=== PATIENT | female | born 1965 | race Caucasian/White ===

== ENCOUNTER 2024-08-30 00:14 | Emergency (ER) | payer SELFPAY ==
[~2024-08-30] VITALS: Ht 152.4 cm; Wt 60.0 kg
[2024-08-30 00:27] VITALS: O2SAT 98
[2024-08-30 00:57] LABS: BASOPHILS % 0.5 % (0.0-2.0); EOSINOPHILS % 1.1 % (0.0-5.0); HEMATOCRIT. 39.8 % (36.0-48.0); HEMOGLOBIN. 13.3 g/dL (12.0-16.0); LYMPHOCYTES % 16.6 % (20.0-50.0); MEAN CORPUSCULAR HEMOGLOBIN 28.7 pg (28.0-32.0); MEAN CORPUSCULAR HGB CONC 33.4 g/dL (31.0-37.0); MEAN CORPUSCULAR VOLUME 85.9 fL (81.0-99.0); MEAN PLATELET VOLUME 9.2 fl (7.4-10.4); MONOCYTES % 4.8 % (2.0-8.0); PLATELET 181 x1000/uL (130-400); RED BLOOD CELL COUNT 4.63 mill/uL (4.2-5.4); WHITE BLOOD COUNT 11.3 x1000/uL (4.5-11.0)
[2024-08-30 00:59] LABS: CHLORIDE 102 mEq/L (98-107); POTASSIUM 3.5 mEq/L (3.5-5.1); SODIUM 140 mEq/L (136-145)
[2024-08-30 01:00] LABS: CARBON DIOXIDE 28 mEq/L (21-32)
[2024-08-30 01:01] LABS: CALCIUM 9.2 mg/dL (8.7-10.4)
[2024-08-30] MEDS: ONDANSETRON HCL 4MG/2ML INJ IV ONE (01:01)
[2024-08-30] MEDS: METOCLOPRAMIDE HCL 10MG/2ML VIAL IV ONE (01:01)
[2024-08-30] MEDS: SODIUM CHLORIDE 0.9% 1,000 ML IV ONE (01:01)
[2024-08-30] MEDS: ACETAMINOPHEN 500MG TABLET PO ONE (01:01)
[2024-08-30 01:05] LABS: CREATININE 0.7 mg/dL (0.6-1.0)
[2024-08-30 01:06] LABS: ETHANOL BLOOD < 10 mg/dL (<10); GLUCOSE 164 mg/dL (70-105); UREA NITROGEN BLOOD 12 mg/dL (9-23)
[2024-08-30 01:21] LABS: TROPONIN I HIGH SENSITIVITY < 4 ng/L (3.0-34)
[2024-08-30 01:26] LABS: HCG SCREEN NEGATIVE
[2024-08-30] MEDS: KETOROLAC 30MG/ML VIAL IV ONE (01:47)
[2024-08-30] MEDS ORDERED: ACET-2708 MT (02:23)
[2024-08-30 02:42] VITALS: BP 101/58; PULSE 89; RESP 14; TEMP 36.7; O2SAT 99
== END 2024-08-30 02:45 | disposition home or self-care (01) ==
LOC: EDBD 00:14 → ER 00:14
DX: R51.9 Headache, unspecified (principal); E78.00 Pure hypercholesterolemia, unspecified; Z55.6 Problems related to health literacy; Z88.0 Allergy status to penicillin; Z79.899 Other long term (current) drug therapy
CPT/HCPCS: 80048; 80320; 84703; 85025; 84484; 36415; 70450; 93005; 96361; 96374; 96375; 99285; J1885; J2765; J2405; J7030; G0480